=== PATIENT | female | born 1965 | race Caucasian/White ===

== ENCOUNTER 2018-04-16 02:40 | Observation (INO) | payer MEDICARE, MEDICAID ==
[2018-04-16] MEDS ORDERED: Sodium Chloride 0.9% 1,000 ML IV ONE ×2 (03:30→06:20)
[2018-04-16] MEDS ORDERED: Pantoprazole 40 MG Vial ONE (03:30)
[2018-04-16] MEDS ORDERED: Morphine 4 MG/ML Syringe ONE ×3 (03:30)
[2018-04-16] MEDS ORDERED: fentaNYL 100 MCG/2 ML SDV ONE (03:30)
[2018-04-16] MEDS ORDERED: GI Cocktail Oral Solution 30 ML ONE (03:30)
[2018-04-16] MEDS ORDERED: Ondansetron 4 MG/2 ML SDV ONE (03:30)
--- NOTE | 2018-04-16 09:26 | EDM.PDOC ---
ED HPI GENERAL MEDICAL PROBLEM - General Chief Complaint: Chest Pain Stated Complaint: Mid Epigastric pain Time Seen by Provider: 04/16/18 09:19 Source of Information: Reports: Patient History Limitations: Reports: No Limitations - History of Present Illness INITIAL COMMENTS - FREE TEXT/NARRATIVE: Sudden epigastric/RUQ pain that started around 2200 last evening. Has nausea. No emesis until she got to the ER and was noted to then have single episode of non-bloody emesis. No fevers/chills. No history of similar pain previously. Had "normal" day prior to developing the pain. Nothing helps the pain. Pain radiates to right mid back. Feels like she has increased small burps. Denies bowel/bladder changes No feelings of constipation. No UTI symptoms. No other pain complaints. No recent acute neuro changes (patient has MS) Denies HEENT/Respiratory changes. No SOB/cough. - Related Data Allergies Allergy/AdvReac Type Severity Reaction Status Date / Time chlorhexidine gluconate Allergy Rash Verified 06/21/13 09:22 [From [employer]] glycerin Allergy Rash Verified 06/21/13 09:22 [From [employer]] hydroxyethylcellulose Allergy Rash Verified 06/21/13 09:22 [From [employer]] Home Meds: Home Meds Albuterol [Ventolin HFA] 2 puff INH Q4H PRN 05/20/13 [History] Amitriptyline HCl 50 mg PO BEDTIME 05/20/13 [History] Aspirin [Halfprin] 81 mg PO DAILY 05/20/13 [History] Ca Carbonate/Vitamin D3/Vit K [Calcium + D Soft Chewable Tab] 1 each PO DAILY [History] DULoxetine [Cymbalta] 60 mg PO DAILY 05/20/13 [History] EPINEPHrine [Epipen 2-Ashu] 0.3 mg IM PRN 05/20/13 [History] Gabapentin 300 mg PO BEDTIME 05/20/13 [History] Gabapentin 600 mg PO QAM 05/20/13 [History] Glatiramer [Copaxone] 20 mg SUBCUT DAILY@1400 05/20/13 [History] Multivitamin with Minerals [Multiple Vitamin] 1 tab PO ASDIRECTED 05/20/13 [ History] Omeprazole 20 mg PO BID 04/06/14 [History] Oxybutynin [Oxybutynin ER] 10 mg PO DAILY 05/20/13 [History] Past Medical History Neurological History: Reports: MS Psychiatric History: Reports: Depression Endocrine/Metabolic History: Reports: Obesity/BMI 30+ - Past Surgical History Female Surgical History: Reports: Tubal Ligation Dermatological Surgical History: Reports: Other (See Below) (Two excisions of abdominal skin excised when she developed irritated areas at her medication injection sites.) Social & Family History - Tobacco Use Smoking Status *Q: Current Every Day Smoker Packs/Tins Daily: 0.1 - Alcohol Use Alcohol Use History: No - Recreational Drug Use Recreational Drug Use: No Drug Use in Last 12 Months: No - Living Situation & Occupation Living situation: Reports: with Significant Other, with Family Occupation: Disabled ED ROS GENERAL - Review of Systems Review Of Systems: ROS reveals no pertinent complaints other than HPI. ED EXAM, GENERAL - Physical Exam Exam: See Below Exam Limited By: No Limitations General Appearance: Alert, Moderate Distress, Obese Eye Exam: Bilateral Eye: EOMI, PERRL Ears: Normal External Exam Nose: No: Nasal Deformity, Nasal Swelling, Nasal Drainage Throat/Mouth: Normal Inspection, Normal Lips, No Airway Compromise Head: Atraumatic, Normocephalic Neck: Normal Inspection, Supple, Non-Tender, Full Range of Motion Respiratory/Chest: No Respiratory Distress, Lungs Clear, Normal Breath Sounds, No Accessory Muscle Use, Chest Non-Tender Cardiovascular: Normal Peripheral Pulses, Regular Rate, Rhythm, No Edema, No Murmur Peripheral Pulses: 2+: Radial (L), Radial (R) GI/Abdominal: Tender (very tender RUQ and epigastric area.), Abnormal Bowel Sounds (decreased all quads). No: Guarding, Rigid, Rebound (Female) Exam: Deferred Rectal (Female) Exam: Deferred Back Exam: CVA Tenderness (R) Extremities: Normal Inspection, Normal Capillary Refill Neurological: Alert, Oriented, Normal Cognition, Normal Gait, No Motor/Sensory Deficits Psychiatric: Anxious Skin Exam: Warm, Dry, Intact, Normal Color EKG INTERPRETATION EKG Date: 04/16/18 Time: 02:46 Rhythm: NSR Rate (Beats/Min): 72 [place]: Normal P-Wave: Present QRS: Normal ST-T: Normal QT: Normal Comparison: NA - No Prior EKG Course - Orders/Labs/Meds Orders: Active Orders 24 hr Category Date Time Status Nicotine [Habitrol] Med 04/16/18 09:45 Ordered 7 mg TRDERM DAILY Medication Orders Nicotine (Habitrol) 7 mg TRDERM DAILY [facility] Meds: Medications Generic Name Dose Route Start Last Admin Trade Name Tao PRN Reason Stop Dose Admin Nicotine 7 mg 04/16/18 09:45 Habitrol TRDERM DAILY [facility] - Radiology Interpretation CT Results Date: 04/16/18 CT Results Time: 05:00 - Re-Assessments/Exams Free Text/Narrative Re-Assessment/Exam: Cardiac labs performed to rule out cardiac component to patient's complaint. CBC/Chem/Trop/CKMB/UA/Lactic acid/Amylase/Lipase drawn. Unremarkable overall. EKG showed no acute ST elevation. GI cocktail did not appear to make any significant difference in pain complaint. Given exam, high suspicion that pancreatitis or gallbladder disease present. CT of abdomen ordered. 04/16/18 09:28 CT of abdomen confirmed cholecystitis. Radiology did not make any mention of stones but did note thickened gallbladder wall. Pain did not improve with morphine, but did show good improvement with Fentanyl. Patient became pain free. She was observed for 4 hours in the ER as she remained NPO except for water. Received IV fluids. Protonix. Did have return of pain requiring several more doses of pain medication. Discharge home on PO meds vs admission to observation discussed with patients, including the pros/cons of each. Patient ultimately elected to be admitted to observation. She will be kept on a clear liquid diet. PRN nausea/pain medication. Anticipate discharge home within the next 24-48 hours with surgical consult to follow. Departure - Departure Time of Disposition: 09:32 Disposition: Refer to Observation Condition: Good Clinical Impression: Cholecystitis, acute - Discharge Information *PRESCRIPTION DRUG MONITORING PROGRAM REVIEWED*: Not Applicable *COPY OF PRESCRIPTION DRUG MONITORING REPORT IN PATIENT ANGIE: Not Applicable Referrals: Chago Rodríguez MD [Primary Care Provider] - Forms: ED Department Discharge - Problem List & Annotations (1) Cholecystitis, acute SNOMED Code(s): 21131174 Code(s): K81.0 - ACUTE CHOLECYSTITIS Status: Acute Priority: High Onset Date: 04/15/18 Annotation/Comment:: No history of previous episodes. Patient to be kept on clear liquid diet as well as PRN pain medication. (2) MS (multiple sclerosis) SNOMED Code(s): 31971466 Code(s): G35 - MULTIPLE SCLEROSIS Status: Chronic Priority: Low Annotation/Comment:: Stable per patient (3) Depression SNOMED Code(s): 76709180 Code(s): F32.9 - MAJOR DEPRESSIVE DISORDER, SINGLE EPISODE, UNSPECIFIED Status: Chronic Priority: Low Annotation/Comment:: stable per patient Qualifiers: Depression Type: unspecified Qualified Code(s): F32.9 - Major depressive disorder, single episode, unspecified - Problem List Review Problem List Initiated/Reviewed/Updated: Yes - My Orders Last 24 Hours: My Active Orders 04/16/18 09:45 Nicotine [Habitrol] 7 mg TRDERM DAILY - Assessment/Plan Admission H&P: Please use this note as an admission H&P Last 24 Hours: My Active Orders 04/16/18 09:45 Nicotine [Habitrol] 7 mg TRDERM DAILY Assessment:: Cholecystitis Plan: As above. Anticipate 1-2 days inpatient stay while acute episode is attempted to be managed. Will recommend outpatient follow up with surgery to consider removal of gallbladder.
[2018-04-16 09:49] LABS: CHLORIDE,CL 100 mmol/L (98-107); SODIUM,NA 138 mmol/L (136-145)
[2018-04-16] MEDS ORDERED: Calcium Carbonate 500 MG Tab.Chew PO PRN (10:17)
[2018-04-16] MEDS ORDERED: Bisacodyl 10 MG Supp RECTAL PRN (10:17)
[2018-04-16] MEDS ORDERED: Acetaminophen 325 MG Tab PO PRN (10:17)
[2018-04-16] MEDS ORDERED: Morphine 4 MG/ML Syringe IVPUSH PRN (10:21)
[2018-04-16] MEDS ORDERED: Ketorolac 30 MG/ML SDV IVPUSH PRN (10:23)
[2018-04-16] MEDS ORDERED: Ondansetron 4 MG/2 ML SDV IVPUSH PRN (10:24)
[2018-04-16] MEDS: Sodium Chloride 0.9% 1,000 ML IV SCH (11:20)
[2018-04-16] MEDS ORDERED: EPINEPHrine 0.3 MG/0.3 ML Pen Autoinjector IM PRN (12:12)
[2018-04-16] MEDS ORDERED: traMADol 50 MG Tab PO PRN (12:13)
[2018-04-16] MEDS: Nicotine 7 MG/24 Hr Patch TRDERM SCH (13:50)
[2018-04-16] MEDS ORDERED: Non-Formulary Medication 1 Each (Melatonin [Melatonin] 10 MG) PO SCH (20:00)
[2018-04-16] MEDS ORDERED: DESVENLAFAXINE SUCCINATE 25 MG PO SCH (20:00)
[2018-04-16] MEDS ORDERED: diphenhydrAMINE 25 MG Cap PO SCH (20:00)
[2018-04-17] MEDS: Sodium Chloride 0.9% 1,000 ML IV SCH (02:09)
[2018-04-17] MEDS: Nicotine 7 MG/24 Hr Patch TRDERM SCH (08:10)
[2018-04-17 08:23] LABS: CHLORIDE,CL 109 mmol/L (98-107); SODIUM,NA 143 mmol/L (136-145)
[2018-04-17] MEDS ORDERED: INTERFERON BETA 0.3 MG SQ SCH (09:00)
[2018-04-17] MEDS ORDERED: Famotidine 20 MG/2 ML SDV IVPUSH ONE (11:51)
[2018-04-17] MEDS ORDERED: Pantoprazole 40 MG Vial IVPUSH ONE (11:51)
--- NOTE | 2018-04-17 12:28 | PCM.DCSUM1 ---
Discharge Summary - Hospital Course HPI Initial Comments: See emergency room note/admission H&P Brief History: See emergency room note/admission H&P Diagnosis: Stroke: No Modified [place] Scale: No Symptoms at All Modified [place] Scale Score: 0 - Discharge Data Discharge Date: 04/17/18 Discharge Disposition: DC/Tfer to Acute Hospital 02 Condition: Good - Discharge Diagnosis/Problem(s) (1) Cholecystitis, acute SNOMED Code(s): 61681027 ICD Code: K81.0 - ACUTE CHOLECYSTITIS Status: Acute Priority: High Current Visit: Yes Onset Date: 04/15/18 Problem Details: CT scan positive for acute cholecystitis with worsening symptoms with IV morphine, which was given by on-call physician in the emergency room, although symptoms completely resolved with subsequent IV fentanyl therapy. I did assume the patient's care later this morning. Patient is symptom-free this morning with resolution of previous leukocytosis. No previous antibiotic or other medical therapy to this point. I did discontinue her IV morphine and initiated high-dose IV Pepcid, IV Protonix, IV Flagyl, and IV Levaquin prior to patient's transfer. I initially thought that the patient wanted to be transferred to [facility] in [place] with telephone consultation at 11:[address] Mathur, general surgeon, who did accept the patient for direct admission. The patient subsequently informed me that she wanted to go to [facility]. Subsequent telephone consultation at 12:[address] Long, general surgeon in their facility, who does accept the patient for direct admission, with no further treatment recommendations given. They are aware of private automobile transport secondary to multiple ER patients and ambulance unavailability. Vital signs were stable at time of transfer. Patient will be kept strictly nothing by mouth with clear fluid diet given this morning. (2) Anemia SNOMED Code(s): 124308161 ICD Code: D64.9 - ANEMIA, UNSPECIFIED Status: Acute Priority: Medium Current Visit: Yes Problem Details: Mild decreased hemoglobin this morning with no direct evidence of significant GI symptoms this morning including recent GI bleed. High-dose IV Protonix and IV Pepcid given as above. Further workup depending on her clinical course. Qualifiers: Anemia type: unspecified type Qualified Code(s): D64.9 - Anemia, unspecified (3) Hypoalbuminemia SNOMED Code(s): 319774273 ICD Code: E88.09 - OTH DISORDERS OF PLASMA-PROTEIN METABOLISM, NEC Status: Acute Priority: Medium Current Visit: Yes Onset Date: 04/17/18 Problem Details: Observe for now. Consider high protein Glucerna supplements as snacks. (4) Mixed anxiety depressive disorder SNOMED Code(s): 886285668 ICD Code: F41.8 - OTHER SPECIFIED ANXIETY DISORDERS Status: Chronic Priority: Medium Current Visit: Yes Problem Details: Stable during this hospitalization. Continue to observe closely by her regular provider. (5) COPD (chronic obstructive pulmonary disease) SNOMED Code(s): 92376632 ICD Code: J44.9 - CHRONIC OBSTRUCTIVE PULMONARY DISEASE, UNSPECIFIED Status : Chronic Priority: Medium Current Visit: Yes Problem Details: Stable during this hospitalization with no recent fever or bronchitic type symptoms. Qualifiers: COPD type: emphysema Emphysema type: panlobular Qualified Code(s): J43.1 - Panlobular emphysema (6) GERD (gastroesophageal reflux disease) SNOMED Code(s): 324988221 ICD Code: K21.9 - GASTRO-ESOPHAGEAL REFLUX DISEASE WITHOUT ESOPHAGITIS Status: Chronic Priority: Medium Current Visit: Yes Problem Details: As above. Otherwise stable by history under previous medical therapy Qualifiers: Esophagitis presence: without esophagitis Qualified Code(s): K21.9 - Gastro -esophageal reflux disease without esophagitis (7) MS (multiple sclerosis) SNOMED Code(s): 18705744 ICD Code: G35 - MULTIPLE SCLEROSIS Status: Chronic Priority: Medium Current Visit: Yes Problem Details: Stable per patient history. Currently under medical therapy and close neurology follow-up at [facility]. (8) Tobacco abuse counseling SNOMED Code(s): 931612929, 543922747, 811234818 ICD Code: Z71.6 - TOBACCO ABUSE COUNSELING Status: Chronic Priority: Medium Current Visit: Yes Problem Details: Tobacco cessation strongly encouraged with information provided at discharge. (9) Sinus arrhythmia SNOMED Code(s): 17706393 ICD Code: I49.8 - OTHER SPECIFIED CARDIAC ARRHYTHMIAS Status: Acute Priority: Medium Current Visit: Yes Onset Date: 04/17/18 Problem Details: EKG shows some mild sinus arrhythmia on admission with no recent chest pain or anginal type symptoms. - Patient Summary/Data Operative Procedure(s) Performed: None Complications: None Consults: General surgeons 2 as above Labs Pending at D/C: None Recommended Follow-up Testing/Procedures: None Planned Operative Procedure(s) after DC: Cholecystectomy as above. Hospital Course: The patient was initially evaluated in the emergency room and transferred to observation status in our facility with therapy as above. No complications during this hospitalization. Private automobile transfer as above. - Patient Instructions Diet: NPO (STRICT) Activity: No Strenuous Activities Driving: Do Not Drive Showering/Bathing: No Showering Notify Provider of: Fever, Increased Pain, Nausea and/or Vomiting Other/Special Instructions: is to drive you to [facility] for direct admission as discussed - Discharge Plan *PRESCRIPTION DRUG MONITORING PROGRAM REVIEWED*: Not Applicable *COPY OF PRESCRIPTION DRUG MONITORING REPORT IN PATIENT ANGIE: Not Applicable Home Medications: Home Meds EPINEPHrine [Epipen 2-Ashu] 0.3 mg IM ASDIRECTED PRN 05/20/13 [History] B12/Levomefolate Calcium/B-6 [Foltx Tablet] 1 each PO Q2D 04/16/18 [History] Cholecalciferol (Vitamin D3) [Vitamin D3] 1,000 unit PO BEDTIME 04/16/18 [ History] Desvenlafaxine Succinate [Pristiq ER] 25 mg PO BEDTIME 04/16/18 [History] Folic Acid 0.4 mg PO BEDTIME 04/16/18 [History] Interferon Beta-1b [Betaseron] 0.3 mg SQ ASDIRECTED 04/16/18 [History] Melatonin 10 mg PO BEDTIME 04/16/18 [History] diphenhydrAMINE [Benadryl] 50 mg PO BEDTIME 04/16/18 [History] Oxygen Therapy Mode: Room Air Patient Handouts: Cholecystitis, [id number] Forms: ED Department Discharge, Interfacility Transfer EMTALA Referrals: Chago Rodríguez MD [Primary Care Provider] - - Discharge Summary/Plan Comment DC Time >30 min.: Yes (Coordination of care ) Discharge Summary/Plan Comment: As above. Extensive precautions were given to the patient and her , who are in agreement with the treatment plan. See Patient Instructions for further treatment and plan. will drive the patient to [facility] or direct admission and planned cholecystectomy as above. - General Info Date of Service: 04/17/18 Admission Dx/Problem (Free Text: Cholecystitis Functional Status: Reports: Pain Controlled, Tolerating Diet, Ambulating, Urinating, New Symptoms. Denies: Incentive Spirometry Numeric/FACES Score: 0 - Review of Systems General: Reports: Weakness (Stable chronic from her MS). Denies: Fever, Malaise , Chills, Night Sweats, Appetite HEENT: Reports: No Symptoms. Denies: Dysphasia, Ear Pain, Eye Pain, Headaches, Post Nasal Drip, Sinus Congestion, Sore Throat, Rhinitis, Visual Changes Pulmonary: Reports: No Symptoms. Denies: Shortness of Breath, Pleuritic Chest Pain, Cough, Sputum, Wheezing Cardiovascular: Reports: No Symptoms. Denies: Palpitations, Dyspnea on Exertion , Orthopnea, Edema, Lightheadedness Gastrointestinal: Reports: No Symptoms. Denies: Abdominal Pain, Constipation, Decreased Appetite, Diarrhea, Difficulty Swallowing, Flatus, Hematochezia, Melena, Nausea, Vomiting Genitourinary: Reports: No Symptoms. Denies: Dysuria, Frequency, Burning, Pain , Urgency, Incontinence, Hematuria, Retention, Flank Pain Musculoskeletal: Reports: No Symptoms. Denies: Neck Pain, Shoulder Pain, Arm Pain, Hand Pain, Back Pain, Leg Pain Skin: Reports: No Symptoms. Denies: Diaphoresis, Bruising Neurological: Reports: Difficulty Walking (Stable MS symptoms as above), Weakness. Denies: Confusion, Dizziness, Headache, Numbness, Paresthesia, Seizure, Syncope, Tingling, Change in Speech Psychiatric: Reports: No Symptoms. Denies: Confusion, Depression, Anxiety, Agitation, Hallucinations - Patient Data Vitals - Most Recent: Last Vital Signs Temp 36.8 C 04/17/18 08:00 Pulse 73 04/17/18 08:00 Resp 15 04/17/18 08:00 BP 114/76 04/17/18 08:00 Pulse Ox 96 04/17/18 08:00 Vital Signs - 24 hr 04/16/18 04/17/18 04/17/18 23:38 04:00 08:00 Temperature [ 36.5 C 37.1 C 36.8 C Temporal] Pulse, 72 64 73 Peripheral [ Pulse Oximetry] Respiratory 16 18 15 Rate Blood Pressure 121/74 109/78 114/76 [Right Arm] O2 Sat by Pulse 100 100 96 Oximetry Weight - Most Recent: 69.763 kg I&O - Last 24 hours: Intake & Output 04/16/18 04/17/18 04/17/18 22:59 06:59 14:59 Intake Total 5173 860 Balance 5643 860 Imaging Impressions - Last 24 hrs: CT scan of the abdomen and pelvis on 04/16/18 positive for acute cholecystitis with report reviewed today. Lab Results - Last 24 hrs: Laboratory Results - last 24 hr 04/17/18 04/17/18 04/17/18 Range/Units 07:10 07:10 07:10 WBC 5.6 (4.0-10.2) K/uL RBC 3.80 (3.77-5.09) M/uL Hgb 11.6 L (11.7-15.5) g/dL Hct 35.4 (34.0-46.0) % MCV 93.2 (84.0-98.0) fL MCH 30.5 (28.2-33.3) pg MCHC 32.8 (31.7-36.0) g/dL RDW 12.9 (11.2-14.1) % Plt Count 280 (150-350) K/uL Neut % (Auto) 32.7 L (45.0-80.0) % Lymph % (Auto) 56.1 H (10.0-50.0) % [place] % (Auto) 7.0 (2.0-14.0) % Eos % (Auto) 3.8 (0.0-5.0) % Baso % (Auto) 0.4 (0.0-2.0) % Neut # (Auto) 1.82 (1.40-7.00) K/uL Lymph # (Auto) 3.12 (0.50-3.50) K/uL [place] # (Auto) 0.39 (0.00-1.00) K/uL Eos # (Auto) 0.21 (0.00-0.50) K/uL Baso # (Auto) 0.02 (0.00-0.20) K/uL Sodium 143 (136-145) mmol/L Potassium 3.8 (3.5-5.1) mmol/L Chloride 109 H (98-107) mmol/L Carbon Dioxide 27.8 (21.0-32.0) mmol/L BUN 4 L (7-18) mg/dL Creatinine 0.74 (0.51-1.17) mg/dL Est Cr Clr Drug Dosing 68.63 mL/min Estimated GFR (MDRD) > 60 mL/min Glucose 81 (74-106) mg/dL Calcium 7.9 L (8.5-10.1) mg/dL Total Bilirubin 0.2 (0.2-1.0) mg/dL AST 20 (15-37) U/L ALT 27 (12-78) U/L Alkaline Phosphatase 72 (46-116) IU/L Total Protein 5.7 L (6.4-8.2) g/dL Albumin 2.9 L (3.4-5.0) g/dL Amylase 28 (25-115) U/L Lipase 95 (73-393) U/L Laboratory Tests 04/16/18 04/16/18 04/16/18 Range/Units 03:15 03:15 03:15 WBC 11.0 H (4.0-10.2) K/uL RBC 4.30 (3.77-5.09) M/uL Hgb 13.0 (11.7-15.5) g/dL Hct 39.1 (34.0-46.0) % MCV 90.9 (84.0-98.0) fL MCH 30.2 (28.2-33.3) pg MCHC 33.2 (31.7-36.0) g/dL RDW 11.2 (11.2-14.1) % Plt Count 312 D (150-350) K/uL Neut % (Auto) 75.8 (45.0-80.0) % Lymph % (Auto) 16.1 (10.0-50.0) % [place] % (Auto) 6.8 (2.0-14.0) % Eos % (Auto) 1.1 (0.0-5.0) % Baso % (Auto) 0.2 (0.0-2.0) % Neut # (Auto) 8.31 H (1.40-7.00) K/uL Lymph # (Auto) 1.76 (0.50-3.50) K/uL [place] # (Auto) 0.74 (0.00-1.00) K/uL Eos # (Auto) 0.12 (0.00-0.50) K/uL Baso # (Auto) 0.02 (0.00-0.20) K/uL PT 9.9 (9.5-12.0) SEC INR 0.9 APTT 27.8 (21.0-31.3) SEC D-Dimer, Quantitative (0-400) ng/mL Sodium 138 (136-145) mmol/L Potassium 3.7 (3.5-5.1) mmol/L Chloride 100 (98-107) mmol/L Carbon Dioxide 27.1 (21.0-32.0) mmol/L BUN 19 H (7-18) mg/dL Creatinine 0.93 (0.51-1.17) mg/dL Est Cr Clr Drug Dosing TNP Estimated GFR (MDRD) > 60 mL/min Glucose 114 H (74-106) mg/dL Lactic Acid (0.4-2.0) mmol/L Calcium 8.9 (8.5-10.1) mg/dL Magnesium 1.9 (1.8-2.4) mg/dL Total Bilirubin 0.2 (0.2-1.0) mg/dL AST 21 (15-37) U/L ALT 32 (12-78) U/L Alkaline Phosphatase 91 (46-116) IU/L Creatine Kinase 53 (26-308) U/L Creatine Kinase Index 0.9 (0.0-2.5) % CK-MB (CK-2) 0.50 (0.00-3.60) ng/mL Troponin I 0.000 (0.000-0.056) ng/mL Total Protein 7.7 (6.4-8.2) g/dL Albumin 4.0 (3.4-5.0) g/dL Amylase 43 (25-115) U/L Lipase 242 (73-393) U/L Specimen Type Urine Color Urine Appearance Urine pH Ur Specific [place] Urine Protein Urine Glucose (UA) Urine Ketones Urine Occult Blood Urine Nitrite Urine Bilirubin Urine Urobilinogen Ur Leukocyte Esterase Urine RBC /HPF Urine WBC /HPF Ur Epithelial Cells /LPF Urine Bacteria (NONE TO FEW) /HPF Urine Mucus (NEGATIVE) /LPF 03/03/19 03/03/19 03/03/19 Range/Units 03:15 03:15 03:15 WBC (4.0-10.2) K/uL RBC (3.77-5.09) M/uL Hgb (11.7-15.5) g/dL Hct (34.0-46.0) % MCV (84.0-98.0) fL MCH (28.2-33.3) pg MCHC (31.7-36.0) g/dL RDW (11.2-14.1) % Plt Count (150-350) K/uL Neut % (Auto) (45.0-80.0) % Lymph % (Auto) (10.0-50.0) % [place] % (Auto) (2.0-14.0) % Eos % (Auto) (0.0-5.0) % Baso % (Auto) (0.0-2.0) % Neut # (Auto) (1.40-7.00) K/uL Lymph # (Auto) (0.50-3.50) K/uL [place] # (Auto) (0.00-1.00) K/uL Eos # (Auto) (0.00-0.50) K/uL Baso # (Auto) (0.00-0.20) K/uL PT (9.5-12.0) SEC INR APTT (21.0-31.3) SEC D-Dimer, Quantitative (0-400) ng/mL Sodium (136-145) mmol/L Potassium (3.5-5.1) mmol/L Chloride (98-107) mmol/L Carbon Dioxide (21.0-32.0) mmol/L BUN (7-18) mg/dL Creatinine (0.51-1.17) mg/dL Est Cr Clr Drug Dosing Estimated GFR (MDRD) mL/min Glucose (74-106) mg/dL Lactic Acid 1.5 (0.4-2.0) mmol/L Calcium (8.5-10.1) mg/dL Magnesium (1.8-2.4) mg/dL Total Bilirubin (0.2-1.0) mg/dL AST (15-37) U/L ALT (12-78) U/L Alkaline Phosphatase (46-116) IU/L Creatine Kinase (26-308) U/L Creatine Kinase Index (0.0-2.5) % CK-MB (CK-2) (0.00-3.60) ng/mL Troponin I (0.000-0.056) ng/mL Total Protein (6.4-8.2) g/dL Albumin (3.4-5.0) g/dL Amylase (25-115) U/L Lipase (73-393) U/L Specimen Type Cancelled Urinvoid Urine Color Cancelled Yellow Urine Appearance Cancelled Slightly cloudy H Urine pH Cancelled 5.5 Ur Specific [place] Cancelled > 1.030 H Urine Protein Cancelled Negative Urine Glucose (UA) Cancelled Negative Urine Ketones Cancelled Negative Urine Occult Blood Cancelled Negative Urine Nitrite Cancelled Negative Urine Bilirubin Cancelled Negative Urine Urobilinogen Cancelled 0.2 Ur Leukocyte Esterase Cancelled Negative Urine RBC 0-5 /HPF Urine WBC 5-10 H /HPF Ur Epithelial Cells Many H /LPF Urine Bacteria Moderate H (NONE TO FEW) /HPF Urine Mucus Few H (NEGATIVE) /LPF 04/16/18 04/17/18 04/17/18 Range/Units 03:15 07:10 07:10 WBC 5.6 (4.0-10.2) K/uL RBC 3.80 (3.77-5.09) M/uL Hgb 11.6 L (11.7-15.5) g/dL Hct 35.4 (34.0-46.0) % MCV 93.2 (84.0-98.0) fL MCH 30.5 (28.2-33.3) pg MCHC 32.8 (31.7-36.0) g/dL RDW 12.9 (11.2-14.1) % Plt Count 280 (150-350) K/uL Neut % (Auto) 32.7 L (45.0-80.0) % Lymph % (Auto) 56.1 H (10.0-50.0) % [place] % (Auto) 7.0 (2.0-14.0) % Eos % (Auto) 3.8 (0.0-5.0) % Baso % (Auto) 0.4 (0.0-2.0) % Neut # (Auto) 1.82 (1.40-7.00) K/uL Lymph # (Auto) 3.12 (0.50-3.50) K/uL [place] # (Auto) 0.39 (0.00-1.00) K/uL Eos # (Auto) 0.21 (0.00-0.50) K/uL Baso # (Auto) 0.02 (0.00-0.20) K/uL PT (9.5-12.0) SEC INR APTT (21.0-31.3) SEC D-Dimer, Quantitative 170 (0-400) ng/mL Sodium 143 (136-145) mmol/L Potassium 3.8 (3.5-5.1) mmol/L Chloride 109 H (98-107) mmol/L Carbon Dioxide 27.8 (21.0-32.0) mmol/L BUN 4 L (7-18) mg/dL Creatinine 0.74 (0.51-1.17) mg/dL Est Cr Clr Drug Dosing 68.63 Estimated GFR (MDRD) > 60 mL/min Glucose 81 (74-106) mg/dL Lactic Acid (0.4-2.0) mmol/L Calcium 7.9 L (8.5-10.1) mg/dL Magnesium (1.8-2.4) mg/dL Total Bilirubin 0.2 (0.2-1.0) mg/dL AST 20 (15-37) U/L ALT 27 (12-78) U/L Alkaline Phosphatase 72 (46-116) IU/L Creatine Kinase (26-308) U/L Creatine Kinase Index (0.0-2.5) % CK-MB (CK-2) (0.00-3.60) ng/mL Troponin I (0.000-0.056) ng/mL Total Protein 5.7 L (6.4-8.2) g/dL Albumin 2.9 L (3.4-5.0) g/dL Amylase (25-115) U/L Lipase (73-393) U/L Specimen Type Urine Color Urine Appearance Urine pH Ur Specific [place] Urine Protein Urine Glucose (UA) Urine Ketones Urine Occult Blood Urine Nitrite Urine Bilirubin Urine Urobilinogen Ur Leukocyte Esterase Urine RBC /HPF Urine WBC /HPF Ur Epithelial Cells /LPF Urine Bacteria (NONE TO FEW) /HPF Urine Mucus (NEGATIVE) /LPF 04/17/18 Range/Units 07:10 WBC (4.0-10.2) K/uL RBC (3.77-5.09) M/uL Hgb (11.7-15.5) g/dL Hct (34.0-46.0) % MCV (84.0-98.0) fL MCH (28.2-33.3) pg MCHC (31.7-36.0) g/dL RDW (11.2-14.1) % Plt Count (150-350) K/uL Neut % (Auto) (45.0-80.0) % Lymph % (Auto) (10.0-50.0) % [place] % (Auto) (2.0-14.0) % Eos % (Auto) (0.0-5.0) % Baso % (Auto) (0.0-2.0) % Neut # (Auto) (1.40-7.00) K/uL Lymph # (Auto) (0.50-3.50) K/uL [place] # (Auto) (0.00-1.00) K/uL Eos # (Auto) (0.00-0.50) K/uL Baso # (Auto) (0.00-0.20) K/uL PT (9.5-12.0) SEC INR APTT (21.0-31.3) SEC D-Dimer, Quantitative (0-400) ng/mL Sodium (136-145) mmol/L Potassium (3.5-5.1) mmol/L Chloride (98-107) mmol/L Carbon Dioxide (21.0-32.0) mmol/L BUN (7-18) mg/dL Creatinine (0.51-1.17) mg/dL Est Cr Clr Drug Dosing Estimated GFR (MDRD) mL/min Glucose (74-106) mg/dL Lactic Acid (0.4-2.0) mmol/L Calcium (8.5-10.1) mg/dL Magnesium (1.8-2.4) mg/dL Total Bilirubin (0.2-1.0) mg/dL AST (15-37) U/L ALT (12-78) U/L Alkaline Phosphatase (46-116) IU/L Creatine Kinase (26-308) U/L Creatine Kinase Index (0.0-2.5) % CK-MB (CK-2) (0.00-3.60) ng/mL Troponin I (0.000-0.056) ng/mL Total Protein (6.4-8.2) g/dL Albumin (3.4-5.0) g/dL Amylase 28 (25-115) U/L Lipase 95 (73-393) U/L Specimen Type Urine Color Urine Appearance Urine pH Ur Specific [place] Urine Protein Urine Glucose (UA) Urine Ketones Urine Occult Blood Urine Nitrite Urine Bilirubin Urine Urobilinogen Ur Leukocyte Esterase Urine RBC /HPF Urine WBC /HPF Ur Epithelial Cells /LPF Urine Bacteria (NONE TO FEW) /HPF Urine Mucus (NEGATIVE) /LPF ROBEL Results - Last 24 hrs: None Med Orders - Current: Current Medications Acetaminophen (Tylenol) 650 mg PO Q4H PRN PRN Reason: analgesia/fever Last Admin: 04/16/18 17:40 Dose: 650 mg Bisacodyl (Dulcolax) 10 mg RECTAL DAILY PRN PRN Reason: Constipation Calcium Carbonate/Glycine (Tums) 500 mg PO Q4H PRN PRN Reason: Dyspepsia Diphenhydramine HCl (Benadryl) 50 mg PO BEDTIME [facility] Last Admin: 04/16/18 19:42 Dose: 50 mg Epinephrine HCl (Epipen) 0.3 mg IM ASDIRECTED PRN PRN Reason: allergic reaction Sodium Chloride (Normal Saline) 1,000 mls @ 75 mls/hr IV ASDIRECTED [facility] Last Admin: 04/17/18 02:09 Dose: 75 mls/hr Levofloxacin/Dextrose 500 mg/ (Premix) 100 mls @ 100 mls/hr IV ONETIME ONE Stop: 04/17/18 14:29 Metronidazole 500 mg/ Premix 100 mls @ 100 mls/hr IV ONETIME ONE Stop: 04/17/18 13:29 Ketorolac Tromethamine (Toradol) 30 mg IVPUSH Q6H PRN PRN Reason: Pain Stop: 04/21/18 10:24 Nicotine (Habitrol) 7 mg TRDERM DAILY [facility] Last Admin: 04/17/18 08:10 Dose: 7 mg Non-Formulary Medication (Desvenlafaxine Succinate [Pristiq]) 25 mg PO BEDTIME [facility] Non-Formulary Medication (Interferon Beta-1b [Betaseron]) 0.3 mg SQ MoWeFr@ 0900 [facility] Non-Formulary Medication (Melatonin [Melatonin]) 10 mg PO BEDTIME [facility] Ondansetron HCl (Zofran) 4 mg IVPUSH Q6H PRN PRN Reason: Nausea/Vomiting Tramadol HCl (Ultram) 50 mg PO Q6H PRN PRN Reason: Pain Discontinued Medications Famotidine (Pepcid) 40 mg IVPUSH ONETIME ONE Stop: 04/17/18 11:52 Morphine Sulfate (Morphine) 4 mg IVPUSH Q2H PRN PRN Reason: Pain (severe 7-10) Pantoprazole Sodium (Protonix Iv) 40 mg IVPUSH ONETIME ONE Stop: 04/17/18 11:52 - Exam Quality Assessment: Reports: DVT Prophylaxis. Denies: Supplemental Oxygen, Central Line/PICC, Urine Catheter, Skin Breakdown, Restraints General: Reports: Alert, Oriented, Cooperative, No Acute Distress HEENT: Reports: Pupils Equal, Pupils Reactive, EOMI, Mucous Membr. Moist/Josephine Neck: Reports: Supple, Trachea Midline, No JVD, No Thyromegaly, +2 Carotid Pulse wo Bruit. Denies: Lymphadenopathy Lungs: Reports: Clear to Auscultation, Normal Respiratory Effort. Denies: Rub Cardiovascular: Reports: Regular Rate, Regular Rhythm, No Murmurs. Denies: Gallops, Rubs GI/Abdominal Exam: Normal Bowel Sounds, Soft, Non-Tender, No Organomegaly, No Distention, No Abnormal Bruit, No Mass, Pelvis Stable. No: Guarding (Female) Exam: Deferred Rectal (Female) Exam: Deferred Back Exam: Reports: Normal Inspection, Full Range of Motion. Denies: CVA Tenderness (L), CVA Tenderness (R), Muscle Spasm Extremities: Normal Inspection, Normal Range of Motion, Non-Tender, No Pedal Edema, Normal Capillary Refill Skin: Reports: Warm, Dry, Intact. Denies: Ecchymosis Neurological: Reports: No New Focal Deficit (Stable MS by history as above) Psy/Mental Status: Reports: Alert, Normal Affect, Normal Mood. Denies: Agitated , Hallucinations, Withdrawal Symptoms
[2018-04-17] MEDS ORDERED: metroNIDAZOLE/Normal Saline 500 MG in Premix Bag 1 BAG IV ONE (12:30)
[2018-04-17] MEDS ORDERED: Levofloxacin/Dextrose 5%-Water 500 MG in Premix Bag 1 BAG IV ONE (13:30)
== END 2018-04-17 14:12 ==
LOC: LL.ED 02:40 → LL.MS 09:20 → UNDOADMOB 09:20
PROVIDERS: ADMIT Emergency Medicine; ATTEND Family Medicine
DX: K81.0 Acute cholecystitis (principal); D64.9 Anemia, unspecified; I49.8 Other specified cardiac arrhythmias; J44.9 Chronic obstructive pulmonary disease, unspecified; E88.09 Other disorders of plasma-protein metabolism, not elsewhere classified; F41.8 Other specified anxiety disorders; F17.200 Nicotine dependence, unspecified, uncomplicated; F32.9 Major depressive disorder, single episode, unspecified; K21.9 Gastro-esophageal reflux disease without esophagitis; G35 Multiple sclerosis; Z79.82 Long term (current) use of aspirin; Z79.899 Other long term (current) drug therapy
CPT/HCPCS: 36415; 71046; 74160; 80053; 81001; 82150; 82550; 82553; 83605; 83690; 83735; 84484; 85025; 85379; 85610; 85730; 93005; 93010; 96361; 96365; 96368; 96374; 96375; 96376; 99217; 99218; 99285-25; A9270-GY; C9113; G0378; J1956; J2270; J2405; J3010; J3490; J7030; Q9967

== ENCOUNTER 2018-09-21 08:42 | Emergency (ER) | payer MEDICARE, MEDICAID ==
--- NOTE | 2018-09-21 08:58 | EDM.PDOC ---
ED HPI GENERAL MEDICAL PROBLEM - General Chief Complaint: Lower Extremity Injury/Pain Stated Complaint: Laceration Time Seen by Provider: 09/21/18 08:50 Source of Information: Reports: Patient, Old Records ([facility] chart/EMR), Other ([facility] EMR) History Limitations: Reports: No Limitations - History of Present Illness INITIAL COMMENTS - FREE TEXT/NARRATIVE: The patient drove herself to the emergency room via private automobile for evaluation of a laceration on her left foot, which occurred at home at about 20: 30 hours this past evening. Note the patient was gardening when she accidentally dropped her pruning mayela onto her left foot. She did clean the wound and place a Neosporin dressing shortly after the above injury. No known history of foreign body, paresthesias, change in her neurological deficits, or other complaints or injuries. She does complain of 9-10/10 sharp foot pain with patient taking 5 OTC ibuprofen tablets at 01:30. No recent history of abdominal pain, heartburn, nausea, diarrhea, melena, gross hematochezia, or any food intolerance, including fatty foods, etc.. The patient also denies any recent fever, cough, wheezing, dyspnea, etc.. Onset: Sudden Onset Date: 09/20/18 Onset Time: 20:30 Duration: Constant Location: Reports: Lower Extremity, Left. Denies: Head, Face, Neck, Abdomen, Back, Pelvis, Upper Extremity, Left, Upper Extremity, Right, Radiates to Quality: Reports: Same as Previous Episode, Sharp Severity: Severe Improves with: Reports: Rest Worsens with: Reports: Movement Context: Reports: Trauma (As above). 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(s), NSAIDS (As above) Left Foot Pain Score (Numeric/FACES): 9 - Related Data Allergies Allergy/AdvReac Type Severity Reaction Status Date / Time chlorhexidine gluconate Allergy Rash Verified 09/21/18 08:48 [From [employer]] glycerin Allergy Rash Verified 09/21/18 08:48 [From [employer]] hydroxyethylcellulose Allergy Rash Verified 09/21/18 08:48 [From [employer]] Home Meds: Home Meds EPINEPHrine [Epipen 2-Ashu] 0.3 mg IM ASDIRECTED PRN 05/20/13 [History] B12/Levomefolate Calcium/B-6 [Foltx Tablet] 1 each PO Q2D 04/16/18 [History] Cholecalciferol (Vitamin D3) [Vitamin D3] 1,000 unit PO BEDTIME 04/16/18 [ History] Desvenlafaxine Succinate [Pristiq] 25 mg PO BEDTIME 04/16/18 [History] Folic Acid 0.4 mg PO BEDTIME 04/16/18 [History] Interferon Beta-1b [Betaseron] 0.3 mg SQ ASDIRECTED 04/16/18 [History] Melatonin 10 mg PO BEDTIME 04/16/18 [History] Amoxicillin/Clavulanate K [Augmentin 875-125 MG] 1 tab PO BIDMEALS #20 tablet [Rx] diphenhydrAMINE HCl [Sleep Aid] 25 mg PO BEDTIME 09/21/18 [History] Past Medical History HEENT History: Reports: Impaired Vision, Other (See Below) Other HEENT History: She wears glasses. Cardiovascular History: Reports: Arrhythmia, Other (See Below) Other Cardiovascular History: Unknown type of sinus arrhythmia requiring ablation as below. 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 Migraine/tension headaches. Psychiatric History: Reports: Anxiety, Depression Endocrine/Metabolic History: Reports: Obesity/BMI 30+, Vitamin D Deficiency Hematologic History: Reports: Anemia, B12 Deficiency, Other (See Below) Other Hematologic History: Hypoalbuminemia - Past Surgical History Cardiovascular Surgical History: Reports: Other (See Below) Other Cardiovascular Surgeries/Procedures: Cardiac ablation for unknown type of cardiac arrhythmia in about 2000 GI Surgical History: Reports: Cholecystectomy, Other (See Below) Other GI Surgeries/Procedures: Laparoscopic cholecystectomy on 04/18/18. Female Surgical History: Reports: Cystoscopy, D&C, Tubal Ligation, Other ( See Below) Other Female Surgeries/Procedures: Endometrial biopsy on 12/29/10. Anterior Bladder suspension on 02/22/08. Cystoscopy with concurrent urodynamic evaluation on 11/22/07 Dermatological Surgical History: Reports: Other (See Below) Other Dermatological Surgeries/Procedures: Excision of fat necrosis secondary to medication injections from abdominal region on 11/16/12. - Past Imaging History Past Imaging History: Reports: CAT Scan (CT of the abdomen and pelvis on 04/22/18 and 05/20/13), Mammogram (Last mammogram on 05/07/13.), MRI (Lumbar spine on . Multiple MRIs of the brain on a yearly basis him including 09/29/17, 12/16/16 , 01/06/15, etc. with initial MRI of the brain per our records on 06/03/10. and 12/05/07.), Sleep Study (Multiple previous CPAP titrations with successful treatment/study on 05/01/10. Previous sleep studies also on 04/16/07 and 04/27/06.) , Ultrasound (Gall bladder ultrasound on 04/18/18. Pelvic ultrasound on 12/11/10, 08/25/07, and 06/16/07.) Social & Family History - Family History HEENT: Reports: Cataract, Glaucoma, Other (See Below) Other HEENT Family History: Mother with glaucoma. Father with cataracts. Paternal great-grandfather with macular degeneration and cataracts. Cardiac: Reports: Afib, Arrhythmia, Bypass, CAD, GA, Other (See Below) Other Cardiac Family History: Hypertension in mother, paternal grandmother, paternal grandparents and paternal uncle. Paternal great-grandfather with GA. Father with atrial fibrillation with rapid ventricular response with brother with unknown type of tachycardia. Paternal great grandmother with atrial fibrillation and fatal GA. Paternal grandfather with CABG 4. Maternal grandfather with fatal GA. Respiratory: Reports: Asthma, Other (See Below) Other Respiratory Family Hisory: Maternal uncle with asthma. GI: Reports: GERD, Inflammatory Bowel Disease, Other (See Below) Other GI Family History: Mother and paternal great grandfather with GERD. Paternal uncle with Crohn's disease. Neurological: Reports: Alzheimers Disease, CVA, Dementia, MS, Other (See Below) Other Neurological Family History: MS in paternal aunt and paternal uncle. Paternal grandmother with CVA and organic brain syndrome. Psychiatric: Reports: Anxiety, Depression, Other (See Below) Other Psychiatric Family History: Father with anxiety depression disorder and alcohol abuse. Endocrine/Metabolic: Reports: Diabetes, type II, IDDM, Other (See Below) Other Endocrine/Metabolic Family History: Paternal grandmother with IDDM. Oncologic: Reports: Colon, Liver, Other (See Below) Other Oncologic Family History: Paternal uncle with liver cancer. Paternal uncle with possible fatal colon cancer. Paternal aunt with fatal pancreatic cancer. - Tobacco Use Smoking Status *Q: Current Every Day Smoker Tobacco Use Within Last Twelve Months: Cigarettes Packs/Tins Daily: 0.3 Used Tobacco, but Quit: No Smoking Cessation Information Provided To Patient: Yes Second Hand Smoke Exposure: Yes Source of Second Hand Smoke Exposure: Daughter, boyfriend Second Hand Smoke Education Provided: Yes - Living Situation & Occupation Living situation: Reports: with Significant Other, with Family (Daughter) Occupation: Disabled (Secondary to MS. 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 ED EXAM, GENERAL - Physical Exam Exam: See Below Exam Limited By: No Limitations General Appearance: Alert, WD/WN, No Apparent Distress Head: Atraumatic, Normocephalic Neck: Normal Inspection, Supple, Non-Tender, Full Range of Motion, Carotid Bruit. No: Lymphadenopathy (L), Lymphadenopathy (R), Thyromegaly Respiratory/Chest: No Respiratory Distress, Lungs Clear, Normal Breath Sounds, No Accessory Muscle Use, Chest Non-Tender. No: Pleural Rub, Retractions Cardiovascular: Normal Peripheral Pulses, Regular Rate, Rhythm, No Edema, No Gallop, No JVD, No Murmur, No Rub. No: Gallop/S3, Gallop/S4, Friction Rub Peripheral Pulses: 2+: Radial (L), Radial (R), Dorsalis Pedis (L), Dorsalis Pedis (R) GI/Abdominal: Normal Bowel Sounds, Soft, Non-Tender, No Organomegaly, No Distention, No Abnormal Bruit, No Mass, Pelvis Stable. No: Guarding (Female) Exam: Deferred Rectal (Female) Exam: Deferred Back Exam: Normal Inspection, Full Range of Motion. No: CVA Tenderness (L), CVA Tenderness (R), Muscle Spasm Extremities: Normal Range of Motion, No Pedal Edema, Normal Capillary Refill, Other (1 cm in length superficial laceration with additional probable puncture wound with mild ecchymosis and moderate swelling of about 2 cm in diameter including mild to moderate purulent drainage). No: Non-Tender (Mild localized tenderness at site of injury), Joint Swelling, Pankaj's Sign, Increased Warmth, Redness Neurological: Alert, Oriented, CN II-XII Intact, Abnormal Gait (Stable secondary to her MS as below), Sensory/Motor Deficit (Stable generalized weakness secondary to her MS) Psychiatric: Normal Affect, Normal Mood Skin Exam: Warm, Dry, Wound/Incision (As above). No: Diaphoretic, Erythema, Increased Warmth, Lymphangitis Lymphatic: No Adenopathy Course - Vital Signs Last Recorded V/S: Last Vital Signs Temp 36.8 C 09/21/18 08:44 Pulse 76 09/21/18 08:44 Resp 14 09/21/18 08:44 BP 145/72 H 09/21/18 08:44 Pulse Ox 100 09/21/18 08:44 Vital Signs - 24 hr 09/21/18 08:44 Temperature [ 36.8 C Temporal] Pulse, 76 Peripheral [ Right Pulse Oximetry] Respiratory 14 Rate Blood Pressure 145/72 H [Left Upper] O2 Sat by Pulse 100 Oximetry - Orders/Labs/Meds Orders: Active Orders 24 hr Category Date Time Status Vaccines to be Administered [RC] PER UNIT ROUTINE Care 09/21/18 09:06 Active Foot Comp Min 3V Lt [CR] Stat Exams 09/21/18 08:55 Taken ANAEROBIC CULTURE Stat Lab 09/21/18 10:00 Received CULTURE WOUND + SMEAR [RM] Stat Lab 09/21/18 10:00 Received Durable Medical Equipment for Discharge [DME for Oth 09/21/18 09:39 Ordered Discharge] [COMM] Routine Obtain Past Medical Record [OM.PC] Routine Oth 09/21/18 08:55 Active Labs: Specimens collected for aerobic culture and sensitivity with Gram stain with additional anaerobic culture specimen collected with results pending. Meds: Medications Discontinued Medications Generic Name Dose Route Start Last Admin Trade Name Freq PRN Reason Stop Dose Admin Ceftriaxone Sodium 1 gm 09/21/18 09:21 09/21/18 09:35 Rocephin IM 09/21/18 09:22 1 gm ONETIME ONE Administration Diphtheria/Tetanus/Acell Pertussis 0.5 ml 09/21/18 09:05 09/21/18 09:22 Adacel IM 09/21/18 09:06 0.5 ml .ONCE ONE Administration Lidocaine HCl 5 ml 09/21/18 09:21 Xylocaine-Mpf 1% INJECT 09/21/18 09:22 ONETIME ONE Lidocaine HCl 0 ml 09/21/18 09:21 09/21/18 09:35 Xylocaine-Mpf 1% INJECT 09/21/18 09:22 2.1 ml ONETIME ONE Administration Neomycin/Polymyxin/Bacitracin 1 each 09/21/18 09:05 09/21/18 09:22 Triple Antibiotic Oint TOP 09/21/18 09:06 1 each ONETIME ONE Administration - Radiology Interpretation Free Text/Narrative:: X-rays of the left foot shows no evidence of fracture with soft tissue injury noted and possible 1-3 millimeter hyperdensity in the mid dorsal aspect of the foot consistent with foreign body. Departure - Departure Time of Disposition: 09:55 Disposition: Home, Self-Care 01 Condition: Good Clinical Impression: Abscess, Multiple sclerosis, Mixed anxiety depressive disorder, Tobacco abuse counseling Cellulitis Qualifiers: Site of cellulitis: extremity Site of cellulitis of extremity: lower extremity Laterality: left Qualified Code(s): L03.116 - Cellulitis of left lower limb GERD (gastroesophageal reflux disease) Qualifiers: Esophagitis presence: without esophagitis Qualified Code(s): K21.9 - Gastro- esophageal reflux disease without esophagitis COPD (chronic obstructive pulmonary disease) Qualifiers: COPD type: emphysema Emphysema type: panlobular Qualified Code(s): J43.1 - Panlobular emphysema - Discharge Information *PRESCRIPTION DRUG MONITORING PROGRAM REVIEWED*: Not Applicable *COPY OF PRESCRIPTION DRUG MONITORING REPORT IN PATIENT ANGIE: Not Applicable Prescriptions: Amoxicillin/Clavulanate K [Augmentin 875-125 MG] 1 tab PO BIDMEALS #20 tablet Instructions: Skin Abscess, [id number] Referrals: Chago Rodríguez MD [Primary Care Provider] - Forms: ED Department Discharge Additional Instructions: 1. Followup with your regular provider in 10-14 days as directed. Bring these discharge instructions with you to that visit. 2. Tylenol 650 mg by mouth every 4 hours and/or OTC ibuprofen 2-3 tabs by mouth every 6 hours with food as directed./needed. You may stagger these medications for 48-72 hours only, which essentially means that you are receiving a pain medication about every 2 hours. 3. Antibacterial soap wash/soak with subsequent antibacterial dressing such as Neosporin, etc. as directed 2 times per day until the wound or laceration site completely heals. Keep the area clean and dry with activity restrictions as discussed. Never use hydrogen peroxide for wound care. 4. First dose of Augmentin later this afternoon with diarrhea precautions as discussed. 5. Stop all tobacco use DINA as directed/per provided information and consider contacting Quit LIne, etc.. 6. Update your routine healthcare DINA including yearly physical exam, blood work, Pap smear, mammogram, and initial colonoscopy as discussed 7. Immediately after this visit verify that your cellular telephone's voicemail has been activated and is empty. Also verify that your home telephone 's answering machine is operating properly and has space to receive messages. Note that it is sometimes necessary for us to be able to contact you at a later date to discuss your medical care. 8. Please remember that we are ALWAYS here for you and want to answer any questions you may have. Feel free to call the hospital any time and we call you back DINA. 9. NEVER EXCEED THE RECOMMENDED DOSE OF MEDICINES, INCLUDING OTC MEDICINES, ETC. - Problem List & Annotations (1) Abscess SNOMED Code(s): 152200317 Code(s): L02.91 - CUTANEOUS ABSCESS, UNSPECIFIED Status: Acute Priority: High Onset Date: 09/21/18 Annotation/Comment:: Specimens collected for aerobic and anaerobic culture and sensitivity as above with results pending. IM Rocephin given. Augmentin therapy to be initiated later this afternoon. Note that the abscess was cleansed by the nurse initially with chlorhexidine swab with irrigation with 20 mLs of saline and subsequent Neosporin dressing. DTaP given. Wound care, activity restrictions, etc. discussed. (2) Cellulitis SNOMED Code(s): 885228633 Code(s): L03.90 - CELLULITIS, UNSPECIFIED Status: Acute Priority: High Onset Date: 09/21/18 Annotation/Comment:: As above. Note possible mild persistent foreign body by today's x-rays with risks exceeding benefits of foreign body excision with patient in agreement with this treatment plan. Qualifiers: Site of cellulitis: extremity Site of cellulitis of extremity: lower extremity Laterality: left Qualified Code(s): L03.116 - Cellulitis of left lower limb (3) Mixed anxiety depressive disorder SNOMED Code(s): 826171382 Code(s): F41.8 - OTHER SPECIFIED ANXIETY DISORDERS Status: Chronic Priority: Medium Annotation/Comment:: Stable by patient history. Continue to observe closely by her regular provider. (4) Tobacco abuse counseling SNOMED Code(s): 149696731, 391893510, 313900657 Code(s): Z71.6 - TOBACCO ABUSE COUNSELING Status: Chronic Priority: Medium Annotation/Comment:: Tobacco cessation once again strongly encouraged with information provided at discharge. She does not appear interested to stop smoking, however. (5) GERD (gastroesophageal reflux disease) SNOMED Code(s): 437559918 Code(s): K21.9 - GASTRO-ESOPHAGEAL REFLUX DISEASE WITHOUT ESOPHAGITIS Status: Chronic Priority: Medium Annotation/Comment:: Otherwise stable by history under previous medical therapy Qualifiers: Esophagitis presence: without esophagitis Qualified Code(s): K21.9 - Gastro -esophageal reflux disease without esophagitis (6) COPD (chronic obstructive pulmonary disease) SNOMED Code(s): 67341514 Code(s): J44.9 - CHRONIC OBSTRUCTIVE PULMONARY DISEASE, UNSPECIFIED Status : Chronic Priority: Medium Annotation/Comment:: No recent fever or bronchitic type symptoms. Qualifiers: COPD type: emphysema Emphysema type: panlobular Qualified Code(s): J43.1 - Panlobular emphysema (7) MS (multiple sclerosis) SNOMED Code(s): 23436885 Code(s): G35 - MULTIPLE SCLEROSIS Status: Chronic Priority: Medium Annotation/Comment:: Stable per patient history. Currently under medical therapy and close neurology follow-up at [facility]. - Problem List Review Problem List Initiated/Reviewed/Updated: Yes - My Orders Last 24 Hours: My Active Orders 09/21/18 08:55 Foot Comp Min 3V Lt [CR] Stat Obtain Past Medical Record [OM.PC] Routine 09/21/18 09:06 Vaccines to be Administered [RC] PER UNIT ROUTINE 09/21/18 09:39 Durable Medical Equipment for Discharge [DME for Discharge] [COMM] Routine 09/21/18 10:00 ANAEROBIC CULTURE Stat CULTURE WOUND + SMEAR [RM] Stat - Assessment/Plan Last 24 Hours: My Active Orders 09/21/18 08:55 Foot Comp Min 3V Lt [CR] Stat Obtain Past Medical Record [OM.PC] Routine 09/21/18 09:06 Vaccines to be Administered [RC] PER UNIT ROUTINE 09/21/18 09:39 Durable Medical Equipment for Discharge [DME for Discharge] [COMM] Routine 09/21/18 10:00 ANAEROBIC CULTURE Stat CULTURE WOUND + SMEAR [RM] Stat Assessment:: As above Plan: As above. Extensive precautions were given to the patient, who is in agreement with the treatment plan. See Patient Instructions for further treatment and plan.
[2018-09-21] MEDS ORDERED: Diphtheria,Pertussis(Acell),Tetanus Vaccine 0.5 ML SDV IM ONE (09:05)
[2018-09-21] MEDS ORDERED: Bacitracin/Neomycin/Polymyxin B Oint 0.9 GM U/D Packet TOP ONE (09:05)
[2018-09-21] MEDS ORDERED: cefTRIAXone 1 GM Vial IM ONE (09:21)
== END 2018-09-21 09:45 | disposition home or self-care (01) ==
LOC: LL.ED 08:42
DX: S91.312A Laceration without foreign body, left foot, initial encounter (principal); L02.416 Cutaneous abscess of left lower limb; L03.116 Cellulitis of left lower limb; K21.9 Gastro-esophageal reflux disease without esophagitis; J43.1 Panlobular emphysema; G35 Multiple sclerosis; F41.8 Other specified anxiety disorders; Z23 Encounter for immunization; Z71.6 Tobacco abuse counseling; F17.210 Nicotine dependence, cigarettes, uncomplicated; Z79.899 Other long term (current) drug therapy; Z88.8 Allergy status to other drugs, medicaments and biological substances; W20.8XXA Other cause of strike by thrown, projected or falling object, initial encounter; Y93.H2 Activity, gardening and landscaping
CPT/HCPCS: 73630; 87070; 87075; 87077; 87186; 87205; 90471; 90715; 96372; 99283; J0696; J2001